=== PATIENT | female | born 1960 | race Caucasian/White ===

== ENCOUNTER → 2016-07-21 | Outpatient (CLI) | payer OTHER ==
[2016-07-21 09:36] LABS: CHLORIDE,CL 107 mmol/L (98-110); SODIUM,NA 141 mmol/L (136-146)
== END | disposition home or self-care (01) ==
LOC: MW.CHFP 08:55
PROVIDERS: ATTEND Emergency Medicine
DX: I10 Essential (primary) hypertension (principal)
CPT/HCPCS: 36415; 80048; 83735

== ENCOUNTER → 2016-09-15 | Outpatient (CLI) | payer OTHER ==
--- NOTE | 2016-09-20 16:05 | MY ---
EXAMINATION: Bilateral digital mammography utilizing CAD. HISTORY: Screening exam. Comparison is made to previous studies dated 04/29/2014, 07/15/2011, 2008. FINDINGS: Bilateral scattered fibroglandular densities. No suspicious calcifications, masses or a rchitectural distortions. No pathologic appearing lymph nodes, no abnormal skin thickening or nipp le inversion. CAD highlighted regions appear normal at this time. IMPRESSION: BI-RADS category I - negative mammogram. Continued screening according to ACR-ACS gu idelines suggested. THE FALSE-NEGATIVE RATE OF MAMMOGRAM IS APPROXIMATELY 10%. MANAGEMENT OF A PALPABLE ABNORMALITY MUST BE BASED UPON CLINICAL GROUNDS. SENSITIVITY FOR DETECTION OF ABNORMALITIES IN DENSE BREASTS IS LOW. NOTE: A letter will be sent to the patient regarding findings. [facility] -- ERIC Kumari [phone] - FAX [phone]
== END ==
LOC: MW.MAM 13:14
PROVIDERS: ATTEND Obstetrics & Gynecology
DX: Z12.31 Encounter for screening mammogram for malignant neoplasm of breast (principal)
CPT/HCPCS: G0202; G0202-26

== ENCOUNTER 2016-10-18 09:44 | Day surgery (SDC) | payer OTHER ==
[~2016-10-18 09:44] MED LIST: Lactated Ringers 1,000 ML IV SCH; Midazolam 1 MG/ML 2 ML SDV ONE; Propofol 200 MG/20 ML SDV ONE; fentaNYL 100 MCG/2 ML SDV ONE
--- NOTE | 2016-10-18 11:26 | PCM.PREANE ---
Preanesthetic Assessment - Anesthesia/Transfusion/Family Hx Anesthesia History: Prior Anesthesia Without Reaction Type of Anesthesia Reaction: Other (see below) (nauzea) Family History of Anesthesia Reaction: No Transfusion History: No Prior Transfusion(s) Intubation History: Unknown - Review of Systems General: No Symptoms Pulmonary: No Symptoms Cardiovascular: No Symptoms Gastrointestinal: No symptoms Neurological: No Symptoms Other: Reports: None - Physical Assessment O2 Sat by Pulse Oximetry: 99 Respiratory Rate: 169 Vital Signs: Last Vital Signs Temp 36.1 C 10/18/16 10:44 Pulse 57 L 10/18/16 10:44 Resp 169 H 10/18/16 10:44 BP 131/82 10/18/16 10:44 Pulse Ox 99 10/18/16 10:44 Height: 1.55 m Weight: 73.936 kg ASA Class: 2 Mental Status: Alert & Oriented x3 Airway Class: Mallampati = 2 Dentition: Reports: Normal Dentition Thyro-Mental Finger Breadths: 3 Mouth Opening Finger Breadths: 2 ROM/Head Extension: Full Lungs: Clear to auscultation, Normal respiratory effort Cardiovascular: Regular Rate, Regular Rhythm - Allergies Allergies/Adverse Reactions: Allergies Allergy/AdvReac Type Severity Reaction Status Date / Time No Known Allergies Allergy Verified 09/27/15 20:51 - Blood Blood Available: No - Anesthesia Plan Pre-Op Medication Ordered: None Beta Taylor: Metoprolol Med Last Dose Date: 10/17/16 Med Last Dose Time: 21:00 - Acknowledgements Anesthesia Type Planned: MAC Pt an Appropriate Candidate for the Planned Anesthesia: Yes Alternatives and Risks of Anesthesia Discussed w Pt/Guardian: Yes Pt/Guardian Understands and Agrees with Anesthesia Plan: Yes PreAnesthesia Questionnaire HEENT History: Reports: Other (See Below) Other HEENT History: wears glasses Cardiovascular History: Reports: Hypertension Genitourinary History: Reports: None 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: Musculoskeletal History: Reports: Arthritis, Fracture Neurological History: Reports: Other (See Below) (insomnia) Other Neuro History: restless leg syndrome Psychiatric History: Reports: Anxiety, Depression Endocrine/Metabolic History: Reports: Obesity/BMI 30+ - Past Surgical History Head Surgeries/Procedures: Reports: None GI Surgical History: Reports: Hernia, Abdominal (umbilical) Female Surgical History: Reports: Breast Biopsy (lumpectomy) Musculoskeletal Surgical History: Reports: Other (See Below) Other Musculoskeletal Surgeries/Procedures:: hx surgery for fx ankle - SUBSTANCE USE Smoking Status *Q: Never Smoker Second Hand Smoke Exposure: No Recreational Drug Use History: No - HOME MEDS Home Medications: Home Meds Hydrochlorothiazide [Hydrochlorothiazide] 25 mg PO DAILY 09/27/15 [History] Lisinopril [Lisinopril] 20 mg PO BID 09/27/15 [History] Metoprolol Succinate [Metoprolol Succinate] 25 mg PO BEDTIME 09/27/15 [History] Potassium Chloride [Potassium Chloride] 20 meq PO DAILY 09/27/15 [History] traZODone [traZODone] 50 mg PO BEDTIME PRN 09/27/15 [History] Escitalopram Oxalate 20 mg PO DAILY 10/13/16 [History] Phentermine HCl 15 mg PO DAILY 10/13/16 [History] amLODIPine [Norvasc] 5 mg PO DAILY 10/13/16 [History] - CURRENT (IN HOUSE) MEDS Current Meds: Current Medications Lactated Ringer's (Ringers, Lactated) 1,000 mls @ 125 mls/hr IV ASDIRECTED [facility] Last Admin: 10/18/16 10:47 Dose: 125 mls/hr Discontinued Medications Fentanyl (Sublimaze) Confirm Administered Dose 100 mcg .ROUTE .STK-MED ONE Stop: 10/18/16 07:21 Midazolam HCl (Versed 1 Mg/Ml) Confirm Administered Dose 2 mg .ROUTE .STK-MED ONE Stop: 10/18/16 07:21 Propofol (Diprivan 20 Ml) Confirm Administered Dose 200 mg .ROUTE .STK-MED ONE Stop: 10/18/16 07:20
[2016-10-18] MEDS ORDERED: Propofol 200 MG/20 ML SDV ONE (13:43)
--- NOTE | 2016-10-18 14:06 | PCM.OPNOTE ---
- General Post-Op/Procedure Note Date of Surgery/Procedure: 10/18/16 Operative Procedure(s): Colonoscopy Pre Op Diagnosis: Desire for colorectal cancer screening Post-Op Diagnosis: No evidence of neoplasia Anesthesia Technique: MAC (ASA II) Primary Surgeon: Kalia José Condition: Good Free Text/Narrative:: Dictation [id number]
--- NOTE | 2016-10-18 14:14 | PCM.POSTAN ---
POST ANESTHESIA ASSESSMENT - MENTAL STATUS Mental Status: alert, oriented - RESPIRATORY Respiratory Status: respiratory rate WNL, airway patent, O2 saturation stable - CARDIOVASCULAR CV Status: pulse rate WNL, blood pressure stable - GASTROINTESTINAL GI Status: no symptoms - POST OP HYDRATION Hydration Status: adequate & stable - OBSERVATIONS Free Text/Narrative:: no anesthesia problems
[2016-10-18] MEDS ORDERED: Lactated Ringers 1,000 ML IV SCH (14:15)
[2016-10-18 14:27] VITALS: BP 119/78
--- NOTE | 2016-10-18 20:59 | OR ---
SURGEON: Kalia José M.D. DATE OF PROCEDURE: 10/18/2016 OPERATION PERFORMED: Colonoscopy. ANESTHESIA: MAC. ASA CLASSIFICATION: II. PREOPERATIVE DIAGNOSIS: Desire for colorectal cancer screening. POSTOPERATIVE DIAGNOSIS: No evidence of neoplasia. DESCRIPTION OF PROCEDURE: The patient was taken to the endoscopy room and positioned on the endoscopy table in the left lateral decubitus position. Time-out was called for appropriate identification of patient and procedure. Monitored anesthesia care was provided. The colonoscope was inserted into the rectum and advanced with minimal difficulty to the cecum where multiple attempts were made to retroflex the colonoscope. We were never able to do so. The cecum, ascending colon, hepatic flexure, transverse colon, splenic flexure, descending colon, sigmoid colon, and rectum were very well visualized. No tumors, polyps, diverticula, or angiodysplastic changes were noted anywhere in the lower gastrointestinal tract. Once the colonoscope was withdrawn to the rectum, it was retroflexed to visualize the anal orifice from above. No acute hemorrhoidal changes were noted. No polyps were encountered. The colonoscope was straightened. The rectum aspirated and colonoscope removed. The patient tolerated the procedure well and was taken to recovery room in stable condition. BRIAN / AMANDA /[id number]
== END 2016-10-18 14:41 | disposition home or self-care (01) ==
LOC: MW.SDS 09:44
PROVIDERS: ATTEND Surgery
PROC: 0DJD8ZZ Inspection of Lower Intestinal Tract, Via Natural or Artificial Opening Endoscopic (ICD-10-PCS; principal; 2016-10-18)
DX: Z12.11 Encounter for screening for malignant neoplasm of colon (principal); F32.9 Major depressive disorder, single episode, unspecified; I10 Essential (primary) hypertension; E66.9 Obesity, unspecified; G25.81 Restless legs syndrome; M19.90 Unspecified osteoarthritis, unspecified site; Z87.891 Personal history of nicotine dependence; Z79.899 Other long term (current) drug therapy; Z98.890 Other specified postprocedural states; Z68.30 Body mass index [BMI] 30.0-30.9, adult
CPT/HCPCS: 45378; J2250; J3010; J7120; J2704

== ENCOUNTER 2019-11-24 18:30 | Emergency (ER) | payer BC ==
[2019-11-24] MEDS ORDERED: Sodium Chloride 0.9% 10 ML Syringe FLUSH PRN (18:32)
[2019-11-24] MEDS ORDERED: Sodium Chloride 0.9% 2.5 ML Syringe FLUSH PRN (18:32)
--- NOTE | 2019-11-24 19:01 | EDM.PDOC ---
ED HPI GENERAL MEDICAL PROBLEM - General Chief Complaint: Respiratory Problem Stated Complaint: SYNCOPY Time Seen by Provider: 11/24/19 18:58 - History of Present Illness INITIAL COMMENTS - FREE TEXT/NARRATIVE: History of present illness: [] The patient is shaking and hyperventilating. She says she feels numb in her fingertips, she is shaky, and she cannot get a deep breath. The patient has never had an episode like this before. She denies that she is under a lot of stress or anxious. She does not have any pain. She does not have any nausea or vomiting. She has merely shaking, trouble getting a deep breath, and she a ppears anxious but says she is not fearful. Review of systems: As per history of present illness and below otherwise all systems reviewed and negative. Past medical history: As per history of present illness and as reviewed below otherwise noncontributory. Surgical history: As per history of present illness and as reviewed below otherwise noncontributory. Social history: No reported history of drug or alcohol abuse. Family history: As per history of present illness and as reviewed below otherwise noncontributory. Physical exam: Constitutional - well developed, well-nourished and in acute distress -some hyperventilating. Will not make eye contact. Eyelids are fluttering. HEENT - normocephalic, no evidence of trauma - external nose and mouth normal - no mass in neck and no JVD - mucosae moist EYES - full EOM, PERRL, no icterus - no evidence of inflammation, injection, or drainage Respiratory - no respiratory distress, equal bilateral expansion, lungs clear to auscultation and no abnormal lung sounds Cardiovascular - Regular Rhythm with S1 and S2 appreciated and no murmur, gallop or rub. Peripheral pulses symmetrically normal in all four extremities GI - abdomen soft without distension or organomegaly - normal bowel sounds - no guard or rebound Musculoskeletal no gross deformity of long bones or joints - no tenderness, swelling or edema Neurologic - Alert and oriented times four - CN II-XII grossly intact - motor sensory and coordination symmetrically normal Psychiatric - appropriate mood and affect with normal thought content Hematologic - No petechiae or purpura - mucosa appropriate color and sclera not pale - normal nail bed color and refill Integument - no rash or evidence of trauma - normal turgor Diagnostics: [] Therapeutics: [] Impression: [] Plan: [] Definitive disposition and diagnosis as appropriate pending reevaluation and review of above. 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: Musculoskeletal History: Reports: Arthritis, Fracture Neurological History: Reports: Other (See Below) Other Neuro History: restless leg syndrome Psychiatric History: Reports: Anxiety, Depression Endocrine/Metabolic History: Reports: Obesity/BMI 30+ - Infectious Disease History Infectious Disease History: Reports: None - Past Surgical History Head Surgeries/Procedures: Reports: None GI Surgical History: Reports: Hernia, Abdominal Female Surgical History: Reports: Breast Biopsy Musculoskeletal Surgical History: Reports: Other (See Below) Other Musculoskeletal Surgeries/Procedures:: hx surgery for fx ankle Social & Family History - Family History Family Medical History: Noncontributory - Tobacco Use Smoking Status *Q: Unknown Ever Smoked ED ROS GENERAL - Review of Systems Review Of Systems: Comprehensive ROS is negative, except as noted in HPI. ED EXAM, GENERAL - Physical Exam Exam: See Below Free Text/Narrative:: History of present illness includes my physical examination EKG INTERPRETATION EKG Date: 11/24/19 Rhythm: NSR P-Wave: Present QRS: Normal ST-T: Depressed QT: Prolonged EKG Interpretation Comments: No prior for comparison-possible ischemia Course - Vital Signs Text/Narrative:: 7:24 PM the patient's troponin is elevated over 0.1. EKG shows sinus rhythm with a heart rate of 84 and an axis of -23. There are nonspecific ST changes. No prior EKG for comparison. Impression possible lateral ischemia. The patient is non-smoker who is treated for hypertension but not cholesterol or diabetes. Her troponin was a surprise in view of the minor changes in the EKG. Once the patient was calm and resting in the emergency department her symptoms abated and she was not hyperventilating. Blood gas showed hyperventilation with hypoxia. A CT Yvonne was done it did not demonstrate a pulmonary embolus. Original troponin was elevated. Potassium was low but after oral correction I realized that the hyperventilation because potassium go intracellular so I elected to repeat the potassium after the oral dose instead of giving intravenous boluses. Is asymptomatic in the emergency room for 2 or more hours as of the time of this dictation 2159 hrs. 22:55PM I have seen the troponin Gota 0.156 and the patient remained asymp tomatic. The CT of the chest was negative. I discussed the case with our hospitalist Dr. Reyes and he said we cannot even have the capability to do a stress test in the morning or even during the week at this facility and recommended I send the patient to a facility that has cardiology available. I discussed the case with Dr. Clark at [facility] and he said if we could not the patient here we could send the patient to the emergency department and [facility]. Patient transferred in satisfactory condition. Dr.'s Boudreaux in the emergency department asked me to discuss management prior to sending the patient with Dr. Clark and Dr. Clark said that he felt like Lovenox would be acceptable before transport. See orders Last Recorded V/S: Last Vital Signs Temp 97.9 F 11/25/19 01:12 Pulse 67 11/25/19 02:15 Resp 18 11/25/19 02:15 BP 104/55 L 11/25/19 02:15 Pulse Ox 95 11/25/19 02:15 - Orders/Labs/Meds Orders: Active Orders 24 hr Category Date Time Status EKG Documentation Completion [RC] STAT Care 11/24/19 18:32 Active Saline Lock Insert [OM.PC] Stat Oth 11/24/19 18:32 Ordered Labs: Laboratory Tests 11/24/19 11/24/19 11/24/19 Range/Units 18:43 18:43 18:43 WBC 8.33 (4.0-11.0) K/uL RBC 4.72 (4.30-5.90) M/uL Hgb 14.1 (12.0-16.0) g/dL Hct 42.2 (36.0-46.0) % MCV 89.4 (80.0-98.0) fL MCH 29.9 (27.0-32.0) pg MCHC 33.4 (31.0-37.0) g/dL RDW Std Deviation 43.6 (28.0-62.0) fl RDW Coeff of Ted 13 (11.0-15.0) % Plt Count 220 (150-400) K/uL MPV 10.10 (7.40-12.00) fL Neut % (Auto) 40.5 L (48.0-80.0) % Lymph % (Auto) 50.9 H (16.0-40.0) % [place] % (Auto) 6.6 (0.0-15.0) % Eos % (Auto) 1.8 (0.0-7.0) % Baso % (Auto) 0.2 (0.0-1.5) % Neut # (Auto) 3.4 (1.4-5.7) K/uL Lymph # (Auto) 4.2 H (0.6-2.4) K/uL [place] # (Auto) 0.6 (0.0-0.8) K/uL Eos # (Auto) 0.2 (0.0-0.7) K/uL Baso # (Auto) 0.0 (0.0-0.1) K/uL Nucleated RBC % 0.0 /100WBC Nucleated RBCs # 0 K/uL INR 1.04 D-Dimer, Quantitative (0.0-0.50) mg/L FEU ABG pH (7.35-7.45) ABG pCO2 (35-45) mmHG ABG pO2 (75-100) mmHG ABG HCO3 (22-26) mEq/L ABG Total CO2 ABG Base Excess (-2.0-2.0) Sodium 138 (136-145) mmol/L Potassium 2.3 L* (3.5-5.1) mmol/L Chloride 97 L (98-107) mmol/L Carbon Dioxide 18.2 L (21.0-32.0) mmol/L BUN 12 (7.0-18.0) mg/dL Creatinine 0.8 (0.6-1.0) mg/dL Est Cr Clr Drug Dosing 58.41 mL/min Estimated GFR (MDRD) > 60.0 ml/min Glucose 124 H (74-106) mg/dL Calcium 9.7 (8.5-10.1) mg/dL Magnesium (1.8-2.4) mg/dL Total Bilirubin 0.5 (0.2-1.0) mg/dL AST 23 (15-37) IU/L ALT 19 (14-63) IU/L Alkaline Phosphatase 69 (46-116) U/L Troponin I 0.117 H* (0.000-0.056) ng/mL Total Protein 8.1 (6.4-8.2) g/dL Albumin 4.6 (3.4-5.0) g/dL Globulin 3.5 (2.6-4.0) g/dL Albumin/Globulin Ratio 1.3 (0.9-1.6) Urine Color Urine Appearance Urine pH (5.0-8.0) Ur Specific [place] (1.001-1.035) Urine Protein (NEGATIVE) mg/dL Urine Glucose (UA) (NEGATIVE) mg/dL Urine Ketones (NEGATIVE) mg/dL Urine Occult Blood (NEGATIVE) Urine Nitrite (NEGATIVE) Urine Bilirubin (NEGATIVE) Urine Urobilinogen (<2.0) EU/dL Ur Leukocyte Esterase (NEGATIVE) Urine RBC (0-2/HPF) Urine WBC (0-5/HPF) Ur Epithelial Cells (NONE-FEW) Urine Bacteria (NEGATIVE) 11/24/19 11/24/19 11/24/19 Range/Units 18:43 18:43 19:50 WBC (4.0-11.0) K/uL RBC (4.30-5.90) M/uL Hgb (12.0-16.0) g/dL Hct (36.0-46.0) % MCV (80.0-98.0) fL MCH (27.0-32.0) pg MCHC (31.0-37.0) g/dL RDW Std Deviation (28.0-62.0) fl RDW Coeff of Ted (11.0-15.0) % Plt Count (150-400) K/uL MPV (7.40-12.00) fL Neut % (Auto) (48.0-80.0) % Lymph % (Auto) (16.0-40.0) % [place] % (Auto) (0.0-15.0) % Eos % (Auto) (0.0-7.0) % Baso % (Auto) (0.0-1.5) % Neut # (Auto) (1.4-5.7) K/uL Lymph # (Auto) (0.6-2.4) K/uL Lim[place] # (Auto) (0.0-0.8) K/uL Eos # (Auto) (0.0-0.7) K/uL Baso # (Auto) (0.0-0.1) K/uL Nucleated RBC % /100WBC Nucleated RBCs # K/uL INR D-Dimer, Quantitative 0.24 (0.0-0.50) mg/L FEU ABG pH 7.594 H (7.35-7.45) ABG pCO2 22 L (35-45) mmHG ABG pO2 60 L (75-100) mmHG ABG HCO3 21 L (22-26) mEq/L ABG Total CO2 18.2 ABG Base Excess 1.2 (-2.0-2.0) Sodium (136-145) mmol/L Potassium (3.5-5.1) mmol/L Chloride (98-107) mmol/L Carbon Dioxide (21.0-32.0) mmol/L BUN (7.0-18.0) mg/dL Creatinine (0.6-1.0) mg/dL Est Cr Clr Drug Dosing mL/min Estimated GFR (MDRD) ml/min Glucose (74-106) mg/dL Calcium (8.5-10.1) mg/dL Magnesium 2.0 (1.8-2.4) mg/dL Total Bilirubin (0.2-1.0) mg/dL AST (15-37) IU/L ALT (14-63) IU/L Alkaline Phosphatase (46-116) U/L Troponin I (0.000-0.056) ng/mL Total Protein (6.4-8.2) g/dL Albumin (3.4-5.0) g/dL Globulin (2.6-4.0) g/dL Albumin/Globulin Ratio (0.9-1.6) Urine Color Urine Appearance Urine pH (5.0-8.0) Ur Specific [place] (1.001-1.035) Urine Protein (NEGATIVE) mg/dL Urine Glucose (UA) (NEGATIVE) mg/dL Urine Ketones (NEGATIVE) mg/dL Urine Occult Blood (NEGATIVE) Urine Nitrite (NEGATIVE) Urine Bilirubin (NEGATIVE) Urine Urobilinogen (<2.0) EU/dL Ur Leukocyte Esterase (NEGATIVE) Urine RBC (0-2/HPF) Urine WBC (0-5/HPF) Ur Epithelial Cells (NONE-FEW) Urine Bacteria (NEGATIVE) 11/24/19 11/24/19 Range/Units 21:00 21:56 WBC (4.0-11.0) K/uL RBC (4.30-5.90) M/uL Hgb (12.0-16.0) g/dL Hct (36.0-46.0) % MCV (80.0-98.0) fL MCH (27.0-32.0) pg MCHC (31.0-37.0) g/dL RDW Std Deviation (28.0-62.0) fl RDW Coeff of Ted (11.0-15.0) % Plt Count (150-400) K/uL MPV (7.40-12.00) fL Neut % (Auto) (48.0-80.0) % Lymph % (Auto) (16.0-40.0) % [place] % (Auto) (0.0-15.0) % Eos % (Auto) (0.0-7.0) % Baso % (Auto) (0.0-1.5) % Neut # (Auto) (1.4-5.7) K/uL Lymph # (Auto) (0.6-2.4) K/uL [place] # (Auto) (0.0-0.8) K/uL Eos # (Auto) (0.0-0.7) K/uL Baso # (Auto) (0.0-0.1) K/uL Nucleated RBC % /100WBC Nucleated RBCs # K/uL INR D-Dimer, Quantitative (0.0-0.50) mg/L FEU ABG pH (7.35-7.45) ABG pCO2 (35-45) mmHG ABG pO2 (75-100) mmHG ABG HCO3 (22-26) mEq/L ABG Total CO2 ABG Base Excess (-2.0-2.0) Sodium (136-145) mmol/L Potassium 3.2 L (3.5-5.1) mmol/L Chloride (98-107) mmol/L Carbon Dioxide (21.0-32.0) mmol/L BUN (7.0-18.0) mg/dL Creatinine (0.6-1.0) mg/dL Est Cr Clr Drug Dosing mL/min Estimated GFR (MDRD) ml/min Glucose (74-106) mg/dL Calcium (8.5-10.1) mg/dL Magnesium (1.8-2.4) mg/dL Total Bilirubin (0.2-1.0) mg/dL AST (15-37) IU/L ALT (14-63) IU/L Alkaline Phosphatase (46-116) U/L Troponin I 0.156 H* (0.000-0.056) ng/mL Total Protein (6.4-8.2) g/dL Albumin (3.4-5.0) g/dL Globulin (2.6-4.0) g/dL Albumin/Globulin Ratio (0.9-1.6) Urine Color YELLOW Urine Appearance CLEAR Urine pH 7.0 (5.0-8.0) Ur Specific [place] 1.010 (1.001-1.035) Urine Protein NEGATIVE (NEGATIVE) mg/dL Urine Glucose (UA) NEGATIVE (NEGATIVE) mg/dL Urine Ketones 15 H (NEGATIVE) mg/dL Urine Occult Blood TRACE-INTACT H (NEGATIVE) Urine Nitrite NEGATIVE (NEGATIVE) Urine Bilirubin NEGATIVE (NEGATIVE) Urine Urobilinogen 0.2 (<2.0) EU/dL Ur Leukocyte Esterase NEGATIVE (NEGATIVE) Urine RBC 0-2 (0-2/HPF) Urine WBC 0-2 (0-5/HPF) Ur Epithelial Cells RARE (NONE-FEW) Urine Bacteria RARE (NEGATIVE) Meds: Medications Discontinued Medications Generic Name Dose Route Start Last Admin Trade Name Freq PRN Reason Stop Dose Admin Aspirin 324 mg 11/24/19 19:24 11/24/19 19:44 Aspirin PO 11/24/19 19:25 324 mg ONETIME ONE Administration Enoxaparin Sodium 60 mg 11/24/19 23:04 11/25/19 00:22 Lovenox SUBCUT 07/18/20 23:05 60 mg ONETIME ONE Administration Potassium Chloride 40 meq/ 100 mls @ 25 mls/hr 11/24/19 19:21 11/24/19 20:03 Premix IV 11/24/19 23:20 Not Given ONETIME ONE Sodium Chloride 1,000 mls @ 100 mls/hr 11/24/19 23:30 11/25/19 00:16 Normal Saline IV 100 mls/hr ASDIRECTED DARRYL Administration Potassium Chloride/Dextrose/Sod Cl 1,000 mls @ 100 mls/hr 11/24/19 23:30 D5 1/2 Ns W/ 20 Meq/L Kcl IV ASDIRECTED DARRYL Potassium Chloride/Dextrose/Sod Cl 1,000 mls @ 100 mls/hr 11/25/19 00:26 11/25/19 00:29 D5 Ns With 20 Meq Kcl IV 11/25/19 10:25 100 mls/hr NOW STA Administration Potassium Chloride/Dextrose/Sod Cl Confirm 11/25/19 00:05 11/25/19 00:43 D5 1/2 Ns W/ 20 Meq/L Kcl Administered 11/25/19 00:06 Not Given Dose 1,000 mls @ as directed .ROUTE .STK-MED ONE Iopamidol 100 ml 11/24/19 21:27 11/24/19 21:28 Isovue-370 (76%) IVPUSH 11/24/19 21:28 100 ml ONETIME ONE Administration Potassium Chloride 40 meq 11/24/19 19:23 11/24/19 19:43 Klor-Con M20 PO 11/24/19 19:24 40 meq ONETIME ONE Administration Sodium Chloride 10 ml 11/24/19 18:32 Saline Flush FLUSH ASDIRECTED PRN Keep Vein Open Sodium Chloride 2.5 ml 11/24/19 18:32 Saline Flush FLUSH ASDIRECTED PRN Keep Vein Open Trazodone HCl 50 mg 11/25/19 00:24 11/25/19 01:12 Trazodone PO 11/25/19 00:25 50 mg ONETIME ONE Administration Departure - Departure Time of Disposition: 03:44 Disposition: DC/Tfer to Acute Hospital 02 Condition: Good Clinical Impression: Acute coronary syndrome - Discharge Information Referrals: [facility] [Primary Care Provider] - Forms: ED Department Discharge Sepsis Event Note (ED) - Evaluation Sepsis Screening Result: No Definite Risk - Focused Exam Vital Signs: Vital Signs Temp Pulse Resp BP Pulse Ox 11/25/19 02:15 67 18 104/55 L 95 11/25/19 01:12 97.9 F 72 18 130/72 96 11/24/19 22:44 97.7 F 81 18 129/81 11/24/19 21:41 65 16 118/73 98 11/24/19 19:44 86 18 132/80 98 11/24/19 18:33 98.9 F 111 H 17 146/99 H 100
[2019-11-24 19:19] LABS: BLOOD UREA NITROGEN,BUN 12 mg/dL (7.0-18.0); CARBON DIOXIDE,CO2 18.2 mmol/L (21.0-32.0); CHLORIDE,CL 97 mmol/L (98-107); GLUCOSE RANDOM 124 mg/dL (74-106); SODIUM,NA 138 mmol/L (136-145)
[2019-11-24 19:21] LABS: POTASSIUM,K 2.3 mmol/L (3.5-5.1)
[2019-11-24] MEDS ORDERED: Potassium Chloride Riders 40 MEQ in Premix Bag 1 BAG IV ONE (19:21)
[2019-11-24] MEDS ORDERED: Potassium Chloride 20 MEQ Tab.ER PO ONE (19:23)
[2019-11-24] MEDS ORDERED: Aspirin 81 MG Tab.Chew PO ONE (19:24)
--- NOTE | 2019-11-24 19:26 | CR ---
Chest: Frontal view of the chest was obtained. Comparison: No previous chest imaging. Heart size and mediastinum are within normal limits. Lungs are clear with no acute parenchymal change. Bony structures are grossly intact. Impression: 1. Nothing acute is seen on frontal chest x-ray. Diagnostic code #1 This report was dictated in MDT
[2019-11-24] MEDS ORDERED: Iopamidol 755 Mg/ML 100 ML Bottle IVPUSH ONE (21:27)
--- NOTE | 2019-11-24 21:52 | CT ---
INDICATION: Dyspnea. CT CHEST WITH CONTRAST TECHNIQUE: Multidetector CT imaging was performed through the chest following intravenous contrast administration using 100 mL Isovue 370. Coronal and sagittal reconstructions were generated. COMPARISON: None. FINDINGS: Lungs and airways: Mild dependent and basilar lung atelectasis bilaterally. No confluent infiltrates, suspicious nodules, or masses. Central airways are patent. Pleura and pleural spaces: No pleural effusions or pneumothorax. Heart and mediastinum: Normal heart size. No significant pericardial effusion. No pathologically enlarged mediastinal lymph nodes. Vascular structures: No filling defects in the pulmonary arterial tree to suggest pulmonary emboli. Normal caliber aorta without evidence of dissection. Minimal coronary artery calcifications. Chest wall and axillae: No mass or axillary lymphadenopathy. Osseous structures: Old healed right lateral 6th rib fracture. Minor spinal degenerative changes. Upper abdomen: Small hiatal hernia. IMPRESSION: 1. No pulmonary emboli or other acute intrathoracic abnormality identified. 2. Nonacute findings as detailed above. EVA LOBO MD [employer] Dictated by Dion Lobo MD @ 11/24/2019 9:49:57 PM Dictated by: Dion Lobo MD @ 11/24/2019 21:51:47 (Electronically Signed)
[2019-11-24 22:25] LABS: POTASSIUM,K 3.2 mmol/L (3.5-5.1)
[2019-11-24] MEDS ORDERED: Enoxaparin 60 MG/0.6 ML Syringe SUBCUT ONE (23:04)
[2019-11-24] MEDS ORDERED: D5 1/2 NS w/ 20 mEq/L KCl 1,000 ML IV SCH (23:30)
[2019-11-24] MEDS ORDERED: Sodium Chloride 0.9% 1,000 ML IV SCH (23:30)
[2019-11-25] MEDS ORDERED: D5 1/2 NS w/ 20 mEq/L KCl 1,000 ML ONE (00:05)
[2019-11-25] MEDS ORDERED: traZODone 50 MG Tab PO ONE (00:24)
[2019-11-25] MEDS ORDERED: Dextrose 5%-0.9% NaCl with KCl 1,000 ML IV STA (00:26)
[2019-11-25 02:15] VITALS: BP 104/55; PULSE 67
== END 2019-11-25 03:30 ==
LOC: MW.ED 18:30
DX: I24.9 Acute ischemic heart disease, unspecified (principal); I10 Essential (primary) hypertension; F41.9 Anxiety disorder, unspecified; F32.9 Major depressive disorder, single episode, unspecified; E66.9 Obesity, unspecified; Z68.30 Body mass index [BMI] 30.0-30.9, adult; Z79.899 Other long term (current) drug therapy
CPT/HCPCS: 36415; 36600; 71045; 71275; 80053; 81001; 82803; 83735; 84132; 84484; 85025; 85379; 85610; 93005; 96365; 96366; 96372; 99285; A9270; J1650; J3480; J7030; Q9967; 99284

== ENCOUNTER 2021-12-09 13:59 | Emergency (ER) | payer BC ==
[2021-12-09] MEDS ORDERED: Sodium Chloride 0.9% 1,000 ML IV ONE (14:30)
[2021-12-09] MEDS ORDERED: Ketorolac 30 MG/ML SDV IVPUSH ONE (14:30)
[2021-12-09 15:14] LABS: BLOOD UREA NITROGEN,BUN 11 mg/dL (7.0-18.0); CARBON DIOXIDE,CO2 30.8 mmol/L (21.0-32.0); CHLORIDE,CL 101 mmol/L (98-107); GLUCOSE RANDOM 113 mg/dL (74-106); POTASSIUM,K 3.1 mmol/L (3.5-5.1); SODIUM,NA 141 mmol/L (136-145)
[2021-12-09 15:16] LABS: ESTIMATED GFR 101 mL/min (>60)
[2021-12-09] MEDS ORDERED: Iopamidol 755 MG/ML 500 ML Multipack Bottle IVPUSH STA (17:36)
[2021-12-09 18:38] VITALS: BP 134/78; PULSE 75
== END 2021-12-09 18:38 | disposition left against medical advice (07) ==
LOC: MW.ED 13:59
DX: R51.9 Headache, unspecified (principal); R50.9 Fever, unspecified; Z20.822 Contact with and (suspected) exposure to COVID-19; I10 Essential (primary) hypertension; E66.9 Obesity, unspecified; Z79.899 Other long term (current) drug therapy; Z68.31 Body mass index [BMI] 31.0-31.9, adult
CPT/HCPCS: 36415; 70450; 71045; 71275; 80053; 81001; 83605; 83735; 84484; 85025; 85610; 85652; 85730; 86140; 87040; 87635; 93005; 96361; 96374; 99284; J1885; J7030; Q9967; 93010; U0002